=== PATIENT | male | born 1945 | race Two or more races ===

== ENCOUNTER 2017-11-03 10:17 | Day surgery (SDC) | payer MEDICARE, OTHER ==
[~2017-11-03 10:17] MED LIST: KETOROLAC TROMETHAMINE 0.45% 4 DROP/0.4 ML DROPERETTE OS PRN
[2017-11-03] MEDS ORDERED: LIDOCAINE 1% INJ-PF (10 MG/ML) 30 ML SDV ONE (10:33)
[2017-11-03] MEDS ORDERED: EPINEPHRINE INJ/PF 1 MG/1 ML AMPULE ONE ×2 (10:33→12:36)
[2017-11-03] MEDS ORDERED: CHONDR SU A NA/HYALUR INTRAOC KIT (SURGICARE) ONE (10:34)
[2017-11-03] MEDS: TETRACAINE HCL 0.5% OPH SOLN 2 ML OS PRN ×3 (11:57→12:26)
[2017-11-03] MEDS: TROPICAMIDE 1% OPH SOLN 3 ML OS PRN ×3 (11:57→12:22)
[2017-11-03] MEDS: CYCLOPENTOLATE 0.2%/PHENYLEPHRINE 1% OPH SOLN 2 ML OS PRN ×3 (11:58→12:22)
[2017-11-03] MEDS: BESIFLOXACIN HCL 0.6% OPH SUSP 5 ML BOTTLE OS PRN ×3 (11:58→12:50)
[2017-11-03] MEDS ORDERED: MIDAZOLAM 2 MG/2 ML INJ ONE (12:10)
--- NOTE | 2017-11-03 18:50 | [facility] OPERATIVE REPORT E ---
[facility] Operative Report NAME: LINH COSME AGE: 72Y DATE OF SURGERY: 11/03/2017 ROOM: PREOPERATIVE DIAGNOSIS: CATARACT, LEFT EYE. POSTOPERATIVE DIAGNOSIS: CATARACT, LEFT EYE. OPERATION: Cataract extraction with insertion of an IOL of the left eye. SURGEON: TEE MELENDEZ M.D. ANESTHESIA: Topical. PROCEDURE: After obtaining appropriate consent, the patient's left eye was prepped and draped in sterile fashion as well as the surgeon in a sterile manner and cataract surgery was started. First a paracentesis blade was used to make a side-port incision. Viscoelastic was used to inflate the anterior chamber. Next a 2.4 mm incision was made with a 2.4 mm blade, clear corneal temporally. A continuous capsulorrhexis was made using a cystotome and Utrata forceps. Following this hydrodissection was carried out to make the lens fully loose and mobile and it was rotated 90 degrees. Following this, a mdfpwz-roy-bnsclsp technique was used to phacoemulsify the lens with a CDE of 8.27. The remaining cortex was removed with irrigation/aspiration. Provisc was instilled into the capsular bag to inflate the bag. A SN60WF, 19.0 diopter lens was placed. The remaining viscoelastic material was removed with irrigation/aspiration. Following this, the incision was found to be watertight. Besivance was instilled into the eye and a protective shield was placed over the eye. The patient returned to the postoperative recovery in stable condition. DICTATING PHYSICIAN: TEE MELENDEZ M.D. [id number] PHY#: [id number] ID: [id number] JOB#: [id number] ACCT: [id number] cc:TEE MELENDEZ M.D. >
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
== END 2017-11-03 13:45 | disposition home or self-care (01) ==
LOC: SC 10:17
PROVIDERS: ATTEND Internal Medicine
DX: H25.13 Age-related nuclear cataract, bilateral (principal); I10 Essential (primary) hypertension; F17.210 Nicotine dependence, cigarettes, uncomplicated; Z79.899 Other long term (current) drug therapy
CPT/HCPCS: 66984; V2632; J2250; J3490 ×2; A9270; J0171; 142

== ENCOUNTER 2017-12-01 09:18 | Day surgery (SDC) | payer MEDICARE, OTHER ==
[~2017-12-01 09:18] MED LIST changes: +KETOROLAC TROMETHAMINE 0.45% 4 DROP/0.4 ML DROPERETTE OD PRN; -KETOROLAC TROMETHAMINE 0.45% 4 DROP/0.4 ML DROPERETTE OS PRN; +MIDAZOLAM 2 MG/2 ML INJ ONE
[2017-12-01] MEDS ORDERED: EPINEPHRINE INJ/PF 1 MG/1 ML AMPULE ONE (09:20)
[2017-12-01] MEDS ORDERED: CHONDR SU A NA/HYALUR INTRAOC KIT (SURGICARE) ONE (09:20)
[2017-12-01] MEDS ORDERED: LIDOCAINE 1% INJ-PF (10 MG/ML) 30 ML SDV ONE (09:20)
[2017-12-01] MEDS: BESIFLOXACIN HCL 0.6% OPH SUSP 5 ML BOTTLE OD PRN ×4 (10:04→11:09)
[2017-12-01] MEDS: CYCLOPENTOLATE 0.2%/PHENYLEPHRINE 1% OPH SOLN 2 ML OD PRN ×3 (10:04→10:24)
[2017-12-01] MEDS: TROPICAMIDE 1% OPH SOLN 3 ML OD PRN ×3 (10:04→10:24)
[2017-12-01] MEDS: TETRACAINE HCL 0.5% OPH SOLN 2 ML OD PRN ×3 (10:05→10:46)
[2017-12-01] MEDS ORDERED: FENTANYL CITRATE INJ/PF 100 MCG/2 ML AMPUL ONE (10:53)
--- NOTE | 2017-12-01 20:40 | [facility] OPERATIVE REPORT E ---
[facility] Operative Report NAME: LINH COSME AGE: 72Y DATE OF SURGERY: 12/01/2017 ROOM: PREOPERATIVE DIAGNOSIS: CATARACT, RIGHT EYE. POSTOPERATIVE DIAGNOSIS: CATARACT, RIGHT EYE. OPERATION: Cataract extraction with insertion of an IOL of the right eye. SURGEON: TEE MELENDEZ M.D. ANESTHESIA: Topical. PROCEDURE: After obtaining appropriate consent, the patient's right eye was prepped and draped in sterile fashion as well as the surgeon in a sterile manner and cataract surgery was started. First a paracentesis blade was used to make a side-port incision. Viscoelastic was used to inflate the anterior chamber. Next a 2.4 mm incision was made with a 2.4 mm blade, clear corneal temporally. A continuous capsulorrhexis was made using a cystotome and Utrata forceps. Following this hydrodissection was carried out to make the lens fully loose and mobile and it was rotated 90 degrees. Following this, a mrpxmz-ctn-umurusq technique was used to phacoemulsify the lens with a CDE of 10.38. The remaining cortex was removed with irrigation/aspiration. Provisc was instilled into the capsular bag to inflate the bag. A SN60WF, 20.0 diopter lens was placed. The remaining viscoelastic material was removed with irrigation/aspiration. Following this, the incision was found to be watertight. Besivance was instilled into the eye and a protective shield was placed over the eye. The patient returned to the postoperative recovery in stable condition. DICTATING PHYSICIAN: TEE MELENDEZ M.D. [id number] PHY#: [id number] ID: [id number] JOB#: [id number] ACCT: [id number] cc:TEE MELENDEZ M.D. >
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
== END 2017-12-01 12:08 | disposition home or self-care (01) ==
LOC: SC 09:18
PROVIDERS: ATTEND Internal Medicine
DX: H25.11 Age-related nuclear cataract, right eye (principal); Z96.1 Presence of intraocular lens; H40.89 Other specified glaucoma; I10 Essential (primary) hypertension; Z79.899 Other long term (current) drug therapy
CPT/HCPCS: 66984; V2632; J2250; J3490 ×2; A9270; J0171; J3010; 142